=== PATIENT | female | born 1995 | race American Indian/Alaskan Native ===

== ENCOUNTER 2019-05-01 04:51 | Emergency (ER) | payer MEDICAID ==
--- NOTE | 2019-05-01 06:37 | Emergency Department Report ---
HPI - General Chief Complaint: Skin/Abscess/Foreign Body Time Seen by Provider: 05/01/19 06:25 - HPI HPI: Room 5 The patient is a 24-year-old female presenting with a chief complaint of left thumb infection. The patient is extremely poor historian and appears irritated when asked about her presenting complaint. The patient keeps stating "it's infected." When I attempt to obtain further relevant history the patient does not answer and simply states "it's infected." The patient appears annoyed that she is being asked questions and then goes back to sleep ED Past Medical Hx - Past Medical History Previous Medical History?: No - Surgical History Past Surgical History?: No - Family History Family history: no significant - Social History Smoking Status: Unknown if ever smoked - Medications Home Medications: Home Medications Medication Instructions Recorded Confirmed Last Taken Type Ciprofloxacin HCl [Ciprofloxacin 500 mg PO Q12HR #20 tab 05/01/19 Unknown Rx TAB] Ibuprofen [Motrin 800 MG tab] 800 mg PO Q8HR PRN #20 tablet 05/01/19 Unknown Rx Sulfamethoxazole/Trimethoprim 1 each PO BID #20 tablet 05/01/19 Unknown Rx [Bactrim DS TAB] ED Review of Systems ROS: Stated complaint: L THUMB INFECTION Other details as noted in HPI Comment: Unobtainable due to pts medical conditions (patient will not answer) Physical Exam - Physical Exam Vital Signs: Vital Signs 05/01/19 06:41 Temperature 98.1 F Pulse Rate 81 Respiratory 18 Rate Blood Pressure 117/87 [Left] O2 Sat by Pulse 96 Oximetry Physical Exam: GENERAL: The patient is well-developed well-nourished female lying on stretcher not appearing to be in acute distress. [] HEENT: Normocephalic. Atraumatic. Extraocular motions are intact. Patient has moist mucous membranes. CHEST/LUNGS: There is no respiratory distress noted. HEART/CARDIOVASCULAR: Regular. Normal capillary refill left thumb SKIN: There is a callous nodule present on the left thumb with a fissure and pale surrounding erythema. There is no discharge. No evidence of a paronychia or felon NEURO: The patient is asleep but awakens to verbal and tactile stimuli. Patient does not offer much pertinent information and is uncooperative with history. The patient has normal speech MUSCULOSKELETAL: There is no evidence of acute injury. ED Medical Decision Making - Differential Diagnosis finger infection Critical care attestation.: If time is entered above; I have spent that time in minutes in the direct care of this critically ill patient, excluding procedure time. ED Disposition Clinical Impression: Infected superficial injury of left thumb Disposition: - TO HOME OR SELFCARE Is pt being admited?: No Does the pt Need Aspirin: No Condition: Stable Instructions: Cellulitis (ED) Prescriptions: Sulfamethoxazole/Trimethoprim [Bactrim DS TAB] 1 each PO BID #20 tablet Ciprofloxacin HCl [Ciprofloxacin TAB] 500 mg PO Q12HR #20 tab Ibuprofen [Motrin 800 MG tab] 800 mg PO Q8HR PRN #20 tablet PRN Reason: Pain, Moderate (4-6) Referrals: PRUDENCE SEO MD [Staff Physician] - 3-5 Days
[2019-05-01 06:43] VITALS: BP 117/87
== END 2019-05-01 08:00 | disposition home or self-care (01) ==
LOC: ED 04:51
DX: S69.92XA Unspecified injury of left wrist, hand and finger(s), initial encounter (principal); Z79.899 Other long term (current) drug therapy; X58.XXXA Exposure to other specified factors, initial encounter; Y93.89 Activity, other specified; Y92.89 Other specified places as the place of occurrence of the external cause; Y99.8 Other external cause status
CPT/HCPCS: 99283